=== PATIENT | female | born 1955 | race Caucasian/White ===

== ENCOUNTER 2019-06-07 09:08 | Outpatient (CLI) | payer OTHER, SELFPAY ==
[2019-06-07 09:59] LABS: Basophils Percent Auto 0.7 % (0.2-1.2); Eosinophils Absolute Auto 0.1 K/mm3 (0-0.3); Eosinophils Percent Auto 2.1 % (0-4.4); Hematocrit 44.5 % (37.0-47.0); Hemoglobin 14.2 g/dL (12.0-15.0); Immature Granulocyte Absolute 0.01 K/mm3 (0.00-0.031); Immature Granulocyte Percent A 0.2 % (0-0.5); Lymphocytes Percent Auto 44.2 % (18.3-44.2); Mean Corpuscular HGB Conc 31.9 g/dl (32-36); Mean Corpuscular Hemoglobin 29.6 pg (26-34); Mean Corpuscular Volume 92.9 fl (80-100); Mean Platelet Volume 10.8 fl (7.4-10.4); Monocytes Absolute Auto 0.5 K/mm3 (0.1-0.6); Monocytes Percent Auto 8.5 % (2.6-8.5); Neutrophils Absolute Auto 2.5 K/mm3 (1.3-6.7); Neutrophils Percent Auto 44.3 % (45.5-73.1); Platelet Count Result 210 k/mm3 (150-375); Red Blood Count 4.79 M/mm3 (4.2-5.4); Red Cell Distribution Width 12.5 % (11.5-14.5); White Blood Count 5.7 K/mm3 (4.5-10.0)
[2019-06-07 10:00] LABS: Add Urine Microscopic? YES; Appearance Urine Clear (Clear); Bilirubin Urine Negative (Negative); Blood Urine Negative (Negative); Color Urine Yellow (Yellow); Glucose Urine UA Negative (Negative); Ketones Urine Trace mg/dL (Negative); Leukocyte Esterase Ur Trace LEU/UL (NEGATIVE); Mucus Urine Few /lpf; Nitrate Urine Negative (Negative); Protein Urine Negative (Negative); Specific Grav Ur 1.025 (1.001-1.035); Squamous Epithelial Cell Urine Rare /hpf (Few); Urobilinogen Urine Negative mg/dL (<2.0); WBC Urine 0-3 /hpf (0-3)
[2019-06-07 10:10] LABS: Alanine Aminotransferase 20 U/L (4-35); Albumin Level 4.3 g/dL (3.5-5.1); Alkaline Phosphatase 75 U/L (38-126); Aspartate Amino Transferase 28 U/L (14-36); Bilirubin,Total 0.5 mg/dL (0.2-1.3); Blood Urea Nitrogen 22 mg/dL (7-17); CRP < 0.5 mg/dL (<1.0); Calcium 9.5 mg/dL (8.4-10.2); Carbon Dioxide 28 mmol/L (22-30); Chloride 103 mmol/L (98-107); Cholesterol 245 mg/dL (0-200); Estimated Glomerular Filt Rate > 60; Glucose 98 mg/dL (65-105); HDL Direct 47 mg/dL; Potassium 4.1 mmol/L (3.4-5.0); Sodium 139 mmol/L (137-145); Triglycerides 106 mg/dL (<150)
[2019-06-07 10:19] LABS: LDL Cholesterol Direct 152 mg/dL
[2019-06-07 10:23] LABS: Erythrocyte Sedimentation Rate 15 mm/hr (0-20)
[2019-06-07 10:34] LABS: Hemoglobin A1C 5.5 % (<5.7)
[2019-06-07 10:41] LABS: Free T4 Free Thyroxine 1.02 ng/mL (0.78-2.19)
[2019-06-07 11:14] LABS: Folic Acid 11.6 ng/mL (2.76->20)
[2019-06-08 22:56] LABS: Methylmalonic Acid 217 nmol/L (87-318)
[2019-06-09 03:42] LABS: Insulin Level Total 3.5 uIU/mL (<=19.6); Thyroid Peroxidase Antibodies <1 IU/mL (<9)
[2019-06-09 19:58] LABS: Intrinsic Factor Blocking Ab Negative (Negative)
[2019-06-10 06:38] LABS: C-Peptide 0.64 ng/mL (0.80-3.85); Triiodothyronine T3 Free 2.8 pg/mL (2.3-4.2)
[2019-06-10 08:51] LABS: Vitamin B1 10 nmol/L (8-30)
[2019-06-10 12:53] LABS: Vitamin B6 17.4 ng/mL (2.1-21.7)
[2019-06-16 08:22] LABS: Vitamin B2 15.3 nmol/L (6.2-39.0)
== END 2019-06-07 09:09 | disposition home or self-care (01) ==
PROVIDERS: PCP Internal Medicine; Visit Provider Internal Medicine
DX: R69 Illness, unspecified (principal); Z87.19 Personal history of other diseases of the digestive system
CPT/HCPCS: 36415; 80053; 80061; 81001; 82607; 82746; 83036; 83525; 83921; 84207; 84252; 84425; 84439; 84443; 84481; 84681; 85025; 85652; 86140; 86340; 86376

== ENCOUNTER 2019-06-14 09:46 | Outpatient (CLI) | payer OTHER, SELFPAY ==
--- NOTE | ~2019-06-14 | US_ITS ---
EXAMINATION: US renal BI EXAM DATE: 06/14/2019 10:03 INDICATION: Hematuria. TECHNIQUE: Multiple grayscale and Doppler images of the kidneys were obtained (by a technologist who performed the scan) and subsequently reviewed. There is no prior study for comparison. FINDINGS: Right kidney: There is normal contour and echogenicity. It measures 11.0 x 4.1 x 4.1 centimeters. T here are no focal renal lesions identified. There is no hydronephrosis. Left kidney: There is normal contour and echogenicity. It measures 9.0 x 4.1 x 5.1 centimeters. The re are no focal renal lesions identified. There is no hydronephrosis. Bladder unremarkable. IMPRESSION: 1. Sonographically unremarkable kidneys. Reviewed, dictated and finalized at location B.
[2019-06-14 11:33] LABS: Vitamin D 25 Hydroxy 49.6 ng/mL
== END 2019-06-14 09:47 | disposition home or self-care (01) ==
PROVIDERS: PCP Internal Medicine; Visit Provider Internal Medicine
DX: Z86.39 Personal history of other endocrine, nutritional and metabolic disease (principal); R31.9 Hematuria, unspecified
CPT/HCPCS: 36415; 76775; 82306

== ENCOUNTER 2019-06-25 14:30 | Outpatient (CLI) | payer OTHER, SELFPAY ==
[2019-06-25 15:08] LABS: Magnesium 2.2 mg/dL (1.6-2.3)
[2019-06-30 16:32] LABS: Gliadin AB, IgG 3 Units (<20); Reticulin IgA Negative (Negative); TTG IGA AB 1 U/mL (<4)
== END 2019-06-25 14:31 | disposition home or self-care (01) ==
PROVIDERS: PCP Internal Medicine; Visit Provider Internal Medicine
DX: R69 Illness, unspecified (principal); K58.9 Irritable bowel syndrome, unspecified; D51.9 Vitamin B12 deficiency anemia, unspecified
CPT/HCPCS: 36415; 83516; 83735; 86255

== ENCOUNTER 2019-07-03 14:49 | Outpatient (CLI) | payer OTHER, SELFPAY ==
[2019-07-05 23:13] LABS: Zinc 93 mcg/dL (60-130)
== END 2019-07-03 14:50 | disposition home or self-care (01) ==
PROVIDERS: PCP Internal Medicine; Visit Provider Internal Medicine
DX: D51.9 Vitamin B12 deficiency anemia, unspecified (principal); K58.9 Irritable bowel syndrome, unspecified
CPT/HCPCS: 36415; 84630

== ENCOUNTER 2019-11-06 10:16 | Outpatient (CLI) | payer OTHER, SELFPAY ==
[2019-11-06 11:17] LABS: Alanine Aminotransferase 20 U/L (4-35); Albumin Level 4.5 g/dL (3.5-5.1); Alkaline Phosphatase 68 U/L (38-126); Anion Gap 8 mmol/L (8-16); Aspartate Amino Transferase 29 U/L (14-36); Bilirubin,Total 0.5 mg/dL (0.2-1.3); Blood Urea Nitrogen 22 mg/dL (7-17); Calcium 9.7 mg/dL (8.4-10.2); Carbon Dioxide 28 mmol/L (22-30); Chloride 105 mmol/L (98-107); Cholesterol 242 mg/dL (0-200); Estimated Glomerular Filt Rate > 60; Glucose 106 mg/dL (65-105); HDL Direct 48 mg/dL; Potassium 4.5 mmol/L (3.4-5.0); Sodium 141 mmol/L (137-145); Triglycerides 116 mg/dL (<150)
[2019-11-06 11:21] LABS: Hemoglobin A1C 5.3 % (<5.7)
[2019-11-06 11:28] LABS: LDL Cholesterol Direct 136 mg/dL
[2019-11-09 10:55] LABS: Vitamin B1 13 nmol/L (8-30)
== END 2019-11-06 10:17 | disposition home or self-care (01) ==
PROVIDERS: PCP Internal Medicine; Visit Provider Internal Medicine
DX: E51.9 Thiamine deficiency, unspecified (principal); E78.5 Hyperlipidemia, unspecified; Z13.1 Encounter for screening for diabetes mellitus; Z79.899 Other long term (current) drug therapy; Z13.29 Encounter for screening for other suspected endocrine disorder
CPT/HCPCS: 36415; 80053; 80061; 83036; 84425; 84443

== ENCOUNTER 2020-04-17 14:18 | Outpatient (CLI) | payer OTHER, SELFPAY ==
--- NOTE | ~2020-04-17 | XR_ITS ---
EXAMINATION: XR sinus <3V DATE: 04/17/2020 14:51 INDICATION: Chronic sinus congestion. TECHNIQUE: 5 views of the paranasal sinuses were obtained. COMPARISON: None. FINDINGS: Bone alignment is normal. No fracture. The paranasal sinuses are clear. IMPRESSION: 1. Normal paranasal sinuses. Reviewed, dictated and finalized at location A. DRESSER
== END 2020-04-17 14:19 | disposition home or self-care (01) ==
LOC: ANHIMG 14:19
PROVIDERS: PCP Internal Medicine; Visit Provider Internal Medicine
DX: R09.81 Nasal congestion (principal)
CPT/HCPCS: 70210

== ENCOUNTER 2020-05-19 15:37 | Outpatient (CLI) | payer OTHER, SELFPAY ==
--- NOTE | ~2020-05-19 | CT_ITS ---
EXAMINATION: CT brain wo/w con DATE: 05/19/2020 16:06 INDICATION: Headaches. Vertigo, stiff neck and occipital tenderness. TECHNIQUE: Computed tomography (CT) of the head was performed without and with 100 mL Omnipaque-350 i ntravenous contrast. Sagittal and coronal reconstructions were performed. The mA was adjusted accordi ng to patient size. Iterative reconstruction technique was employed. The dose-length product was 1210 .67 mGy-cm. COMPARISON: None FINDINGS: No acute intracranial hemorrhage, acute infarction or abnormal extra axial fluid collection. Ventricl es are normal and symmetric. No mass/mass effect. No abnormally enhancing brain lesions. The orbits a nd mastoid air cells are normal. Moderate mucosal thickening and small amount of posterior layering f luid/mucus in the right sphenoid sinus. Remainder of the paranasal sinuses are clear. IMPRESSION: 1. No acute intracranial process or abnormally enhancing brain lesions. 2. Mucosal thickening and layering fluid/mucus in the right sphenoid sinus consistent with acute sinu sitis. Reviewed, dictated and finalized at location B. IMPRESSION: 1. No acute intracranial process or abnormally enhancing brain lesions. 2. Mucosal thickening and layering fluid/mucus in the right sphenoid sinus cons istent with acute sinusitis.
[2020-05-19 16:01] LABS: Estimated Glomerular Filt Rate > 60
== END 2020-05-19 15:38 | disposition home or self-care (01) ==
PROVIDERS: PCP Internal Medicine; Visit Provider Internal Medicine
DX: R51.9 Headache, unspecified (principal)
CPT/HCPCS: 70470; Q9967

== ENCOUNTER 2022-04-20 12:38 | Outpatient (CLI) | payer OTHER, SELFPAY ==
--- NOTE | ~2022-04-20 | CT_ITS ---
EXAMINATION: CT chest high resolution wo sc DATE: 04/20/2022 12:56 INDICATION: Chronic cough TECHNIQUE: Computed tomography (CT) of the chest was performed without intravenous contrast. The dose -length product (DLP) was 131.97 mGy-cm. Automated exposure control and iterative reconstruction tech nique were employed. COMPARISON: None FINDINGS: Tiny mucous plugs are seen in multiple bilateral bronchi. The lungs are free of acute airsp nael opacities. There are small bilateral pulmonary nodules measuring up to 3 mm. No pleural effusion or pneumothorax. No pathologically enlarged thoracic lymph nodes are identified. The heart size is no rmal. There is mild thoracic spondylosis. IMPRESSION: 1. Tiny mucous plug seen in multiple bilateral bronchi, consistent with infection. 2. Multiple small pulmonary nodules measuring up to 3 mm. If the patient has no risk factors for ady gnancy, no further follow up is required. If there are risk factors for malignancy (i.e., history of smoking, asbestos or radiation exposure), consider followup CT in 12 months. Reviewed, dictated and finalized at location L. REPAIRER IMPRESSION: 1. Tiny mucous plug seen in multiple bilateral bronchi, consistent with infecti on. 2. Multiple small pulmonary nodules measuring up to 3 mm. If the patient has no risk factors for malignancy, no further follow up is required. If there are r isk factors for malignancy (i.e., history of smoking, asbestos or radiation exp osure), consider followup CT in 12 months.
--- NOTE | ~2022-04-20 | CT_ITS ---
EXAMINATION: CT sinus wo con DATE: 04/20/2022 12:56 INDICATION: Cough and congestion. TECHNIQUE: Computed tomography (CT) of the paranasal sinuses was performed without intravenous contra st. Iterative reconstruction technique was employed. The dose-length product was 318.31 mGy-cm. COMPARISON: Head CT 05/19/2020 FINDINGS: The frontal and ethmoid sinuses are clear. There is moderate mucosal thickening in right sp henoid sinus. The maxillary sinuses are clear. There is esme bullosa involving left middle turbinat e. There are bilateral Ursula cells. The ostiomeatal units are patent. The nasal septum demonstrates rightward deviation superiorly on a left lateral spur. IMPRESSION: 1. Mucosal thickening in right sphenoid sinus. Reviewed, dictated and finalized at location A. P FITNESS ASSISTANT DEPARTMENT HEAD
== END 2022-04-20 12:39 | disposition home or self-care (01) ==
LOC: ANHIMG 12:39
PROVIDERS: PCP Internal Medicine; Visit Provider Internal Medicine
DX: R05.3 Chronic cough (principal); R09.81 Nasal congestion; R91.8 Other nonspecific abnormal finding of lung field
CPT/HCPCS: 70486; 71250

== ENCOUNTER 2022-04-22 07:30 | Outpatient (CLI) | payer OTHER, SELFPAY ==
--- NOTE | ~2022-04-22 | XR_ITS ---
EXAMINATION: XR UGIAC wo kub DATE: 04/22/2022 08:44 INDICATION: Cough with eating and drinking. TECHNIQUE: The patient drank thick barium, gas-producing crystals, and thin barium. Fluoroscopy of th e esophagus, stomach, and proximal small bowel was performed. Fluoroscopy exposure time was 0.5 minut es. The total number of images was 215. Total dose-area product was 1.049 Gy-cm^2. COMPARISON: Chest CT 04/20/2022 FINDINGS: There is no mass or stricture of the esophagus. Esophageal motility is normal. There is no hiatal hernia. There was no gastroesophageal reflux with provocative maneuvers. The stomach and proxi mal small bowel show normal folding patterns. IMPRESSION: 1. Normal upper gastrointestinal series. Reviewed, dictated and finalized at location A. COORDINATOR
--- NOTE | ~2022-04-22 | XR_ITS ---
EXAMINATION: XR barium swallow modified DATE: 04/22/2022 08:46 INDICATION: Coughing with eating and drinking. TECHNIQUE: The patient was given barium-containing material of multiple consistencies to swallow by t britta speech pathologist while I performed fluoroscopy. Fluoroscopy exposure time was 0.8 minutes. The n umber of fluoroscopy images saved to the PACS was 1. Dose-area product was 0.551 Gy-cm^2. FINDINGS: There is mild vallecular residue and trace piriform sinus residue. No laryngeal penetration or aspira tion. IMPRESSION: 1. No laryngeal penetration or aspiration. 2. Please refer to the speech therapy report for recommendations. Reviewed, dictated and finalized at location A. HING PATTERNMAKER
[2022-04-22 08:02] LABS: Basophils Percent Auto 0.7 % (0.2-1.2); Eosinophils Absolute Auto 0.1 K/mm3 (0-0.3); Eosinophils Percent Auto 1.4 % (0-4.4); Hematocrit 44.1 % (37.0-47.0); Hemoglobin 14.4 g/dL (12.0-15.0); Immature Granulocyte Absolute 0.02 K/mm3 (0.00-0.031); Immature Granulocyte Percent A 0.4 % (0-0.5); Lymphocytes Percent Auto 45.2 % (18.3-44.2); Mean Corpuscular HGB Conc 32.7 g/dl (32-36); Mean Corpuscular Hemoglobin 29.5 pg (26-34); Mean Corpuscular Volume 90.4 fl (80-100); Mean Platelet Volume 10.1 fl (7.4-10.4); Monocytes Absolute Auto 0.4 K/mm3 (0.1-0.6); Neutrophils Absolute Auto 2.5 K/mm3 (1.3-6.7); Neutrophils Percent Auto 44.3 % (45.5-73.1); Platelet Count Result 243 k/mm3 (150-375); Red Blood Count 4.88 M/mm3 (4.2-5.4); Red Cell Distribution Width 13.1 % (11.5-14.5); White Blood Count 5.5 K/mm3 (4.5-10.0)
[2022-04-22 09:02] LABS: Alanine Aminotransferase 23 U/L (6-35); Albumin Level 4.5 g/dL (3.5-5.1); Alkaline Phosphatase 81 U/L (38-126); Anion Gap 8 mmol/L (8-16); Aspartate Amino Transferase 29 U/L (14-36); Bilirubin,Total 0.7 mg/dL (0.2-1.3); Blood Urea Nitrogen 16 mg/dL (7-17); Calcium 9.4 mg/dL (8.4-10.2); Carbon Dioxide 29 mmol/L (22-30); Chloride 103 mmol/L (98-107); Cholesterol 251 mg/dL (0-200); Estimated Glomerular Filt Rate > 60; Glucose 100 mg/dL (65-110); HDL Direct 38 mg/dL; Potassium 4.3 mmol/L (3.4-5.0); Sodium 140 mmol/L (137-145); Triglycerides 128 mg/dL (<150)
[2022-04-22 09:14] LABS: LDL Cholesterol Direct 141 mg/dL
--- NOTE | 2022-04-22 09:17 | REHSTMBS ---
Assessment and note entered by Laure Crystal, RESERVATIONS SPECIALIST Modified Barium Swallow Evaluation Feeding Type Recommended Oral Food Consistency Regular, Level 7 Liquid Consistency Thin (0) ST Clinical Summary MODIFIED BARIUM SWALLOW The patient was seen for a Modified Barium Swallow study to assess her risk for aspiration. Patient reported that approximately four weeks ago, she suffered from influenza which developed into pneumonia. Patient reported that she was started on nebulizer/steroid treatments and she stated that since that time she has noticed that she coughs after she eats, and that even when swallowing water, she would feel it come back up and she would cough. She did report a history of gastroesophageal reflux. Patient reported that a CT scan showed mucous plugs in her lungs and she is unsure if these were caused by the pneumonia or by aspiration. Today the patient was viewed in the lateral position of C5/C6. Patient was presented with thin liquid per spoon and cup, then pudding mixed with semi-solid contrast medium, and crackers and fruit coated with the semi-solid mixture. Patient exhibited quick swallows with no evidence of penetration or aspiration. Patient may remain on regular diet and liquids. No further Speech Therapy is indicated and patient is referred back to her physician for further assessment of her complaints.
[2022-04-22 09:24] LABS: Hemoglobin A1C 5.4 % (<5.7)
[2022-04-22 09:46] LABS: Free T4 Free Thyroxine 1.27 ng/mL (0.78-2.19); Vitamin D 25 Hydroxy 33.3 ng/mL
[2022-04-22 10:06] LABS: Folic Acid 8.3 ng/mL (2.76->20)
[2022-04-29 13:20] LABS: Vitamin B1 8 nmol/L (8-30)
== END 2022-04-22 07:31 | disposition home or self-care (01) ==
PROVIDERS: PCP Internal Medicine; Visit Provider Internal Medicine
DX: R05.3 Chronic cough (principal); R13.10 Dysphagia, unspecified; Z79.899 Other long term (current) drug therapy; Z13.29 Encounter for screening for other suspected endocrine disorder; E78.5 Hyperlipidemia, unspecified; E51.9 Thiamine deficiency, unspecified; D51.9 Vitamin B12 deficiency anemia, unspecified; E55.9 Vitamin D deficiency, unspecified; Z13.1 Encounter for screening for diabetes mellitus
CPT/HCPCS: 36415; 74246; 80053; 80061; 82306; 82607; 82746; 83036; 84425; 84439; 84443; 85025; 92611

== ENCOUNTER 2022-05-26 12:50 | Outpatient (CLI) | payer OTHER, SELFPAY ==
--- NOTE | ~2022-05-26 | MR_ITS ---
MRI of the cervical spine Clinical History: Dizziness, neck pain Technique: Axial T2-weighted and gradient images, and sagittal T1-weighted, T2-weighted, and STIR yves ges were acquired. Findings: There is no fracture or subluxation of the cervical spine. Vertebral bodies maintain normal height and alignment. No suspicious bone marrow signal abnormality seen. At C2-C3, there is no disc bulge or herniation. No spinal canal stenosis, cord compression, or neural foraminal narrowing. At C3-C4, there is minimal disc osteophyte complex. There is no kourtney spinal canal stenosis, cord com pression, or neural foraminal narrowing. At C4-C5, there is mild disc osteophyte complex which probably minimally flattens the ventral cord. B ilateral neural foramina are probably preserved. At C5-C6, there is minimal disc osteophyte complex. No kourtney spinal canal stenosis, cord compression, or neural foraminal narrowing. At C6-C7, there is minimal disc osteophyte complex. No kourtney spinal canal stenosis, cord compression, or neural foraminal narrowing. No abnormal signal seen in the spinal cord. Paravertebral soft tissues are unremarkable. Impression: Minimal degenerative spondylosis, as noted above. Reviewed, dictated and finalized at location . Impression: Minimal degenerative spondylosis, as noted above.
--- NOTE | ~2022-05-26 | MR_ITS ---
MRI of the brain Clinical History: Dizziness Technique: Axial and sagittal T1-weighted images were acquired. These were followed by axial T2-weigh carolann, diffusion weighted, gradient, and FLAIR images. Following intravenous administration of 10 cc Mu ltiHance gadolinium, T1-weighted fat-sat imaging was performed in the axial and coronal planes. Findings: No significant signal abnormality seen in the brain parenchyma. No acute infarct, intracran ial hemorrhage or mass lesion seen. Ventricles and subarachnoid spaces are unremarkable. Orbits are unremarkable. Paranasal sinuses and m astoid air cells are clear. Major intracranial flow voids are intact. Sagittal midline structures are intact. No abnormal postcontrast enhancement identified. IMPRESSION: No significant abnormality seen. Reviewed, dictated and finalized at location .
== END 2022-05-26 12:51 | disposition home or self-care (01) ==
LOC: ANHIMG 12:51
PROVIDERS: PCP Internal Medicine; Visit Provider Internal Medicine
DX: R42 Dizziness and giddiness (principal); R51.9 Headache, unspecified; G89.29 Other chronic pain; M47.892 Other spondylosis, cervical region
CPT/HCPCS: 70553; 72141; A9577

== ENCOUNTER 2023-10-27 12:40 | Outpatient (CLI) | payer OTHER, SELFPAY ==
[2023-10-27 19:21] LABS: Basophils Percent Auto 0.5 % (0.2-1.2); Eosinophils Absolute Auto 0.1 K/mm3 (0-0.3); Eosinophils Percent Auto 1.2 % (0-4.4); Hematocrit 44.6 % (37.0-47.0); Hemoglobin 14.3 g/dL (12.0-15.0); Immature Granulocyte Absolute 0.01 K/mm3 (0.00-0.031); Immature Granulocyte Percent A 0.2 % (0-0.5); Lymphocytes Absolute Auto 2.91 K/mm3 (0.9-3.2); Lymphocytes Percent Auto 49.2 % (18.3-44.2); Mean Corpuscular HGB Conc 32.1 g/dl (32-36); Mean Corpuscular Hemoglobin 30.6 pg (26-34); Mean Corpuscular Volume 95.5 fl (80-100); Mean Platelet Volume 10.9 fl (7.4-10.4); Monocytes Absolute Auto 0.5 K/mm3 (0.1-0.6); Monocytes Percent Auto 7.6 % (2.6-8.5); Neutrophils Absolute Auto 2.4 K/mm3 (1.3-6.7); Neutrophils Percent Auto 41.3 % (45.5-73.1); Platelet Count Result 237 k/mm3 (150-375); Red Blood Count 4.67 M/mm3 (4.2-5.4); Red Cell Distribution Width 13.1 % (11.5-14.5); White Blood Count 5.9 K/mm3 (4.5-10.0)
[2023-10-27 19:33] LABS: Add Urine Microscopic? NO; Appearance Urine Clear (Clear); Bilirubin Urine Negative (Negative); Blood Urine Negative (Negative); Color Urine Yellow (Yellow); Glucose Urine UA Negative (Negative); Ketones Urine Negative (Negative); Leukocyte Esterase Ur Negative LEU/UL (Negative); Nitrate Urine Negative (Negative); Protein Urine Negative (Negative); Specific Grav Ur 1.009 (1.001-1.035); Urobilinogen Urine 0.2 mg/dL (<2.0)
[2023-10-27 19:43] LABS: Alanine Aminotransferase 20 U/L (6-35); Albumin Level 4.4 g/dL (3.5-5.1); Alkaline Phosphatase 74 U/L (38-126); Anion Gap 10 mmol/L (4-12); Aspartate Amino Transferase 51 U/L (14-36); Bilirubin,Total 0.6 mg/dL (0.2-1.3); Blood Urea Nitrogen 19 mg/dL (7-17); Calcium 9.5 mg/dL (8.4-10.2); Carbon Dioxide 28 mmol/L (22-30); Chloride 101 mmol/L (98-107); Cholesterol 271 mg/dL (0-200); Estimated Glomerular Filt Rate > 60; Glucose 85 mg/dL (65-110); HDL Direct 40 mg/dL; Sodium 139 mmol/L (137-145); Triglycerides 184 mg/dL (<150)
[2023-10-27 19:54] LABS: LDL Cholesterol Direct 165 mg/dL
[2023-10-27 20:42] LABS: Hemoglobin A1C 5.5 % (<5.7)
[2023-10-27 21:22] LABS: Folic Acid 8.8 ng/mL (2.76->20)
== END 2023-10-27 12:41 | disposition home or self-care (01) ==
LOC: ANHBWCLAB 12:41
PROVIDERS: PCP Internal Medicine; Visit Provider Internal Medicine
DX: Z00.00 Encounter for general adult medical examination without abnormal findings (principal); Z79.899 Other long term (current) drug therapy; E78.2 Mixed hyperlipidemia; D51.9 Vitamin B12 deficiency anemia, unspecified
CPT/HCPCS: 36415; 80053; 80061; 81003; 82306; 82607; 82746; 83036; 84439; 84443; 85025

== ENCOUNTER 2024-04-27 10:31 | Outpatient (CLI) | payer OTHER, SELFPAY ==
--- NOTE | ~2024-04-27 | DEXA_ITS ---
Bone Density Report Name: JOHNIE SANABRIA Age: 68 Sex: Female Ethnicity: White Date of : 1955 Indication: postmenopausal; screening for osteoporosis; Referring Provider: VAMSHI IRIZARRY Study: Bone densitometry was performed. Exam Date: April 27, 2024 Accession number: [id number] Bone Density: Region BMD T-score Z-score Classification AP Spine(L1-L4) 0.683 -3.3 -1.4 Osteoporosis Femoral Neck (Left) 0.537 -2.8 -1.2 Osteoporosis Total Hip (Left) 0.749 -1.6 -0.3 Osteopenia Femoral Neck (Right) 0.520 -3.0 -1.4 Osteoporosis Total Hip (Right) 0.765 -1.5 -0.1 Osteopenia Total Hip Mean 0.757 -1.6 -0.2 Osteopenia World Health Organization criteria for BMD impression classify patients as: Normal (T-score at or above -1.0), Osteopenia (T-score between -1.0 and -2.5), or Osteoporosis (T-score at or below -2.5). 10-year Fracture Risk: FRAX not reported because: Some T-score for Spine Total or Hip Total or Femoral Neck at or below -2.5 Clinical Information Provided by Patient: Has used the following medications: Vitamin D Patient maximum height was 63 Menopause Age: 56 No regular weight bearing exercise Does not regularly consume dairy products Drinks caffeinated beverages Onset of menses at age 14 Number of children 3 Impression: The patient has osteoporosis, based on the Total Spine T-score. Discussion: INCREASED RISK OF FRACTURE. BONE DENSITY IS UNDESIRABLY LOW AT ONE OR MORE SKELETAL SITES, CONSISTENT WITH POSTMENOPAUSAL OSTEOPOROSIS. This patient's lowest T-score meets the World Health Organization's (WHO) criteria for osteoporosis at one or more sites (T-score -2.5 or below). In untreated patients, the risk of osteoporotic fracture increases approximately two-fold for each 1.0 SD decrease in T-score. Low bone density is not the only risk factor for fracture; also consider factors such as patient's age, frailty or poor health, risk of falling, risk of injury, previous osteoporotic fracture, family history of osteoporosis, cigarette smoking, low body weight, etc. Not everyone with low bone mineral density has osteoporosis; osteomalacia and other metabolic bone disorders should also be considered. Patients who have osteoporosis should be evaluated for specific diseases and conditions (secondary causes) that may cause or contribute to bone loss. The [place] [employer] of Clinical Endocrinologists (AACE) and National Osteoporosis Foundation (NOF) recommend pharmacologic intervention for all postmenopausal women whose T-score is in this range. The patient should follow a healthful lifestyle (good nutrition with adequate calcium and vitamin D, and appropriate weight-bearing exercise). Follow-Up: Consider a repeat BMD and Vertebral Fracture Assessment (VFA) exam in 2 years or sooner if medically necessary, to reassess this patient's status. Reported by: NAYELI on 04/27/2024 11:03:00 AM. Reviewed, dictated and finalized at location A. [facility]
--- OUTSIDE RECORDS SUMMARY | 2024-04-27 11:09 | XMS_ITS | Clinical Summary ---
Author Organization [facility] Medical Office Building [address] Address [address] [place] [address] Care Team Providers Care Rotary Cutter Feeder Name Role Phone Franky Ramirez MD Primary Care Provider [phone] Allergies Active Allergy Reactions Criticality Noted Date Comments Hydroxyzine Palpitations Low Iodine Palpitations,Flushing (skin) Low Meperidine Palpitations Low Medications pravastatin (PRAVACHOL) 80 mg tablet Take 1 tablet (80 mg total) by mouth daily Active thiamine (VITAMIN B1) 100 mg tablet Take 1 tablet (100 mg total) by mouth daily Active Active Problems Problem Noted Date Diagnosed Date Hx of colonic polyps 11/03/2023 Bloating 04/28/2022 Overview (04/28/2022): Added automatically from request for surgery [id number] Delayed gastric transit 04/28/2022 Overview (04/28/2022): Added automatically from request for surgery [id number] Irritable bowel syndrome with constipation 11/12 Dyspepsia 11/12/2021 Vertigo 05/23/2020 Assessment & Plan (05/27/2020 3:55 PM CDT): Billie has been experiencing vertigo symptoms since March 17, denies any relief in her symptoms since then. She has been going to vestibular therapy and undergoing chiropractic work for her vertigo-like symptoms without relief. She does report that her dizziness gets worse when she does laid down but denies any worsening symptoms with quick head movements, no nystagmus noted on exam. Is likely that Billie's vertigo could be related to vestibular migraines/current headache cycle. She has associated daily headache that is a constant throbbing nature. She has not responded to vestibular therapy or chiropractic work, therefore I believe it is reasonable to move forward with imaging is any has not been much of a migraine suffer in the past. I also would like to move forward with a migraine treatment regimen to see if we can obtain relief of her symptoms. Occipital neuralgia of right side 05/23/2020 Assessment & Plan (06/05/2020 12:03 PM CDT): On exam today I did not elicit a Tinel sign over the right greater occipital nerve. After discussing with the patient and evaluating her further, we decided to proceed with trigger point injections of the semi spinalis and splenius capitis. The areas of tenderness were identified by palpation. After preparing the skin with isopropyl alcohol, a 27 gauge 1/2 inch needle was inserted in the muscle belly of the semi spinalis on the right and the splenius capitis on the right. After negative aspiration, 1 mL of 0.5% bupivacaine was injected into each muscle. Estimated blood loss 0, complications 0 Assessment & Plan (05/27/2020 3:52 PM CDT): Billie is exhibiting symptoms of occipital neuralgia. She is able to reproduce pain when placing pressure over the right side occipital nerve. She has not had success with vestibular therapy or chiropractic work. She has not tried any prescription medications to treat her symptoms. Plan: 1. Nortriptyline 10 mg nightly 2. MRI MRA of the brain to evaluate for any vascular structural causes 3. Discussed potential occipital nerve block in the near future in the event the neuropathic medications do not work. Headache disorder 05/23/2020 Assessment & Plan (06/05/2020 12:03 PM CDT): The patient appears to have cervicogenic headaches. Certainly some of this appears to be associated with muscle tension. We did trigger point injections today. If these fail to improve her symptoms, I have increased the patient's nortriptyline as well as given her tizanidine to try. She can follow up with [facility] as previously scheduled. Assessment & Plan (05/27/2020 3:51 PM CDT): Billie is currently experiencing daily headache to some caliber. She has associated symptoms of dizziness, phonophobia, photophobia and nausea. She reports that her headache is in the occipital area unilaterally on the right side and will often have a frontal pressure as well. She has tried ckgw-esi-pbznuyc medication with little relief. She is currently on a steroid pack given her by her primary care provider with little relief of her headache pattern. She has not been on a daily preventative nor has she tried a Triptan. She is open to trying a daily preventative treatment at this time. We will consider introducing a Triptan in the future. She has mixed headache features in nature. She has features consistent with that of vestibular migraines, classic migraines and symptoms consistent with that of occipital neuralgia. We discussed possibly moving forward with an occipital nerve block. She is open to this treatment plan if neuropathic medications do not offer her significant relief in the near future. Plan: 1. Nortriptyline 10 mg nightly for headache prevention. We will titrate this medication up as tolerated. 2. MRI and MRA of the brain to identify any potential vascular or structural causes of her headaches and associated dizziness. MRA to evaluate the posterior circulation. 3. Headache diary 4. Cessation of rutb-rec-obyvnlt medication use 5. Caffeine cessation 6. 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 7. Follow-up in 4-6 weeks At today s visit migraine education was performed. We discussed avoidance of migraine triggers and non-medicinal strategies for preventing migraines. Topics of discussion included improved sleep hygiene, healthy diet, and stress reduction techniques. We also discussed the importance of avoiding medication overuse, as this can promote analgesic rebound headache. Hyperlipidemia 04/18/2018 White coat syndrome without diagnosis of hyperte nsion 03/25/2017 Vitamin D deficiency 03/22/2017 Vitamin B 12 deficiency 03/17/2017 Migraine 09/18/2013 Overview (06/10/2016): MIGRNE UNSP WO NTRC MGRN Irritable bowel syndrome 07/21/2013 Overview (06/10/2016): IRRITABLE BOWEL SYNDROME Resolved Problems Problem Noted Date Diagnosed Date Resolved Date Sinusitis 05/06/2015 03/17/2017 Overview (06/10/2016): Sinusitis, unspecified chronicity, unspecified location No pathologic diagnosis 01/05/201203/07 Overview (06/11/2016): No diagnosis Encounters Date Type Department Care Team Description 03/21/2024 Telephone [facility] Gastroenterology at [address] [place] [address] Lore Zuniga MA from Last 3 Months Immunizations Immunization Administration Dates Next Due Influenza, Split 01/16/2010,12/23/2008 Influenza, Unspecified 12/05/2017,12/05/2016,03/2015 Tdap 11/03/2010 Surgical History Surgery Date Site/Laterality Comments SECTION 1984, 1986, & 1994 TUBAL LIGATION 03/07/1994 - 03/06/1995 UPPER GASTROINTESTINAL ENDOSCOPY COLONOSCOPY 07/05/2017 - 08/04/2017 POLYPECTOMY Medical History Medical History Date Comments Hyperlipidemia Leg fracture, right 1982 Back pain Osteopenia History of migraine headaches IBS (irritable bowel syndrome) Small bowel 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 Colon polyp Pneumonia 03/2022 Postviral gastroparesis Family History Medical History Relation Name Comments Kidney cancer Father COD at age 80 Hyperlipidemia Mother Hypertension Mother Transient ischemic attack Mother th ree times in her 40's Relation Name Status Comments Father Mother Social History Tobacco Use Types Packs/Day Years Used Date Smoking Tobacco: Never Smokeless Tobacco: Never Tobacco Cessation:Counseling Given: Not Answered Alcohol Use Standard Drinks/Week Comments No 0 (1 standard drink = 0.6 oz pur e alcohol) AUDIT-C Answer Date Recorded Q1: How often do you have a drink containing alc ohol? Monthly or less 10/26/2023 Q2: How many drinks containi ng alcohol do you have on a typical day when you are drinking? 1 or 2 10/26/2023 Q3: How often do you have si x or more drinks on one occasion? 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 Not on file Obstetrics History Para Term AB IAB SAB Ectopic Multiple Livin g Live Births 3 3 3 0 0 0 0 0 0 3 3 Date Outcome GA Total Labor Labor/2nd/3rd Weight Sex Type Anes PTL Kira A1 A5 Name Clin Term Term Term Last Filed Vital Signs Vital Sign Reading Time Taken Comments Blood Pressure 165/82 10/26/2023 10:21 AM CDT Pulse 122 10/26/2023 10:21 AM CDT Temperature 36.8 C (98.2 F) 05/06/2022 3:[address] [employer] Respiratory Rate 16 10/26/2023 10:2 1 AM CDT Oxygen Saturation 99% 05/06/2022 3:[address] [employer] Inhaled Oxygen Concentration - - Weight 53.4 kg (117 lb 12.8 oz) 024 10:21 AM CDT Height 160 cm (5' 3 ) 10/26/2023 10:21 AM CDT Body Mass Index 20.87 10/26/2023 10:21 AM CDT Plan of Treatment Upcoming Encounters Date Type Department Care Team (Late st Contact Info) Description 05/29/2024 11:30 AM CDT Hospital Encounter [address] [address] Maddy Claire MD [address] [facility] [address] [place] [address] [place] [id number] 05/29/2024 11:30 AM CDT - 05/29/2024 12:00 PM CDT Surgery [address] [address] Maddy Claire MD [address] [facility] [address] [place] [address] COLONOSCOPY Scheduled Procedures Name Priority Associated Diagnoses Date/Ti me COLONOSCOPY Hx of colonic polyps 05/29/2024 11:30 AM CDT Health Maintenance Due Date Last Done Comments Hepatitis C Screening 1955 Osteoporosis Screening-Bone Density Scan 1955 Hepatitis B Screening 09/09/1975 Pneumococcal vaccine 65+ (1 of 1 - PCV) 09/09/2007 Fall Risk Assessment 03/17/2018 03/17/2017 Depression Screening 04/18/2019 04/18/2018, 03/17/19 18 Zoster Vaccine (2 of 2) 03/04/2020 01/08/2020 DTaP/Tdap/Td Vaccine (2 - Td or Tdap) 11/03/2020 11/03/2010 Well Visit 65+ 2022 04/18/2018, 07/25/2017 Influenza Vaccine (#1) 2023 0, 12/15/2018, 12/06/2017, Additional history exists Breast Cancer Screening-Mammogram 10/11/2024 10/12/2023, 10/12/2023, 08/24/2022, Additional history exists Colon Cancer Screening-Colonoscopy 07/06/2027 07/05/2017 Colon Cancer Screening-CT Colonography Discontinued 07/05/2017 Colon Cancer Screening-DNA Stool Discontinued 07/06/19 18 Colon Cancer Screening-FIT Discontinued 07/05/2017 Colon Cancer Screening-Sigmoidoscopy Discontinued 07/05/2017 Procedures Procedure Name Priority Date/Time Associated Diagnosis Comments COLONOSCOPY 07/05/2017 7:38 AM CDT HM MAMMOGRAPHY Routine 04/12/2017 9:[address] [employer] from Last 3 Months or Most Recently Relevant to Health Maintenance Results * COLONOSCOPY (07/05/2017 7:38 AM CDT) Anatomical Region Laterality Modality Other Narrative Procedure Note Maddy Claire MD - 07/05/2017 7:38 AM CDT [facility] Patient Name: Billie Sanabria Procedure Date: 07/05/2017 7:38 AM Date of : 1955 Admit Type: Outpatient Age: 61 Gender: Female Attending MD: Maddy Claire M.D. Room: [facility] ENDOSCOPY CAPSULE Note Status: Finalized Patient Profile: 61 WF presented for screening., also c/oconstipation, sometimes vomiting, and weight loss. Procedure: Colonoscopy Indications: Screening for colorectal malignant neoplasm, Last colonoscopy: July 2009 Referring MD: Alayna Byers, WALE Providers: Maddy Claire M.D. Impression: - The terminal ileum is normal. - One 3 mm polyp in the descending colon. Resectedand retrieved. - Internal hemorrhoids. Recommendation: - Await pathology results. - Repeat colonoscopy in 5 years for surveillance. - Return to my office as previously scheduled. - Continue present medications. Medicines: Monitored Anesthesia Care Complications: No immediate complications. Estimated Blood Loss: Estimated blood loss: none. Procedure: Pre-Anesthesia Assessment: - Prior to the procedure, a History and Physical was performed, and patient medications and allergieswere reviewed. The patient's tolerance of previous anesthesia was also reviewed. The risks and benefitsof the procedure and the sedation options and riskswere discussed with the patient. All questions were answered, and informed consent was obtained. Prior Anticoagulants: The patient has taken no previous anticoagulant or antiplatelet agents. ASA Grade Assessment: II - A patient with mild systemicdisease. After reviewing the risks and benefits, the patientwas deemed in satisfactory condition to undergo the procedure. The benefits, risks and alternatives of theprocedure and sedation were discussed and informed consent was obtained. All questions were answered. Please referto the signed informed consent document in the medical record. The scope was passed under direct vision.The Pediatric Colonoscope PCF-H190L [id number] was introduced through the anus and advanced to the the cecum, identified by appendiceal orifice andileocecal valve. The colonoscopy was performed without difficulty. The patient tolerated the procedurewell. The quality of the bowel preparation was good. Findings: The perianal and digital rectal examinations were normal. The ileum appeared normal. Mucosal pattern was normal. The colon (entire examined portion) appeared normal. No inflammatory changes and no diverticular chnages noted. No mass lesions noted. A 3 mm polyp was found in the descending colon. The polyp wassessile. The polyp was removed with a jumbo cold forceps. Resection andretrieval were complete. Internal hemorrhoids were found during retroflexion. The hemorrhoids were medium-sized. Electronically signed by Maddy Claire M.D. Maddy Claire M.D. 07/05/2017 8:53:22 AM Number of Addenda: 0 Note Initiated On: 07/05/2017 7:38 AM Procedure Code(s): --- Professional --- 91095, Colonoscopy, flexible; with biopsy, single or multiple Diagnosis Code(s): --- Professional --- Z12.11, Encounter for screening for malignant neoplasm of colon K64.8, Other hemorrhoids D12.4, Benign neoplasm of descending colon CPT copyright 2014 [employer]. All rights reserved. The codes documented in this report are preliminary and upon security operations specialist reviewmay be revised to meet current compliance requirements. Recognized by the [employer] for promoting quality in endoscopy Maddy Claire MD ENDOSCOPY PROCEDURES Final Result * MAMMOGRAPHY (04/12/2017 9:[address] [employer]) Mammogram Normal Historical Provider HEALTH MAINTENANCE Final Result from Last 3 Months or Most Recently Relevant to Health Maintenance Insurance [facility] CHOICE PLUS [facility] HMO/PPO Address: [place] [address] [facility] CHOICE [facility] HMO/PPO Address: [place] [address] [facility] CHOICE [facility] HMO/PPO Address: [address] [address] [place] [id number] [place] [address] [facility] CHOICE [facility]US [facility] HMO/PPO Address: [address] [address] [place] [address] Advance Directives For more information, please contact: [phone] * Full Code (Latest Code Status on File) Date Activated Date Inactivated Comments 05/06/2022 12:35 PM 05/06/2022 7:41 PM * Full Code Date Activated Date Inactivated Comments 05/06/2022 12:35 PM 05/06/2022 12:35 PM * Full Code Date Activated Date Inactivated Comments 07/05/2017 7:14 AM 07/05/2017 11:34 AM Care Teams Rotary Cutter Feeder Relationship Specialty Start Date End Date Franky Ramirez MD [address] [facility] MEDICINE [place], [place] [id number] PCP - General Internal Medicine 05/08/20
--- OUTSIDE RECORDS SUMMARY | 2024-04-27 11:09 | XMS_ITS | Clinical Summary ---
Author Organization [facility] Address [address] [place] [address] Phone Care Team Providers Care Freelance Translator Name Role Phone Franky Ramirez MD Primary Care Provider [phone] Family History Medical History Relation Name Comments Breast Cancer Mother Relation Name Status Comments Mother Social History Tobacco Use Types Packs/Day Years Used Date Smoking Tobacco: Never Assessed Comments No Sex and Gender Information Value Date Recorded Sex Assigned at Not on file Legal Sex Female 8:55 PM CDT Gender Identity Not on file Sexual Orientation Not on file Plan of Treatment Health Maintenance Due Date Last Done Comments DEXA Bone Density 1955 Hepatitis C Virus (HCV) Screening 1955 Colonoscopy 2002 Colorectal Cancer Screening 2002 Cologuard 09/09/2007 Immunochemical Fecal Occult Blood 09/09/2007 Influenza Immunization (#1) 11/06/202312/06, 12/01/2021, 12/29/2020, Additional history exists SARS-COV-2 Immunization ( season) 2023 01/18/2022, 01/08/2021, 04/10/2020, Additional history exists Mammogram 10/11/2024 10/12/2023, 08/06, 07/08/2021, Additional history exists Respiratory Syncytial Virus (RSV) Immunization (Adult) (1 - 1-dose 75+ series) 2032 DTaP/Tdap/Td Immunization Discontinued 11/03/2010 TdaP Immunization Completed 11/03/2010 Zoster Immunization Completed 07/21/2020, 0 Pneumococcal Immunization (50+ years) Completed 01/18/2023, 01/02/2023 Pneumococcal Immunization Combined Discontinued 01/18/2023, 01/02/2023 Hepatitis B Immunization Aged Out No longer eligible based on patient's age to complete this topic Meningococcal Immunization (ACWY) Aged Out No longer eligible based on patient's age to complete this topic Rotavirus Immunization Aged Out No lo nger eligible based on patient's age to complete this topic Procedures Procedure Name Priority Date/Time Associated Diagnosis Comments NATA SCREENING BILATERAL DIGITAL W CAD W MARIPOSA Routine 10/12/2023 10:41 AM CDT Visit for screening mammogram from Last 3 Months or Most Recently Relevant to Health Maintenance Results * NATA SCREENING BILATERAL DIGITAL W CAD W MARIPOSA (10/12/2023 10:41 AM CDT) Anatomical Region Laterality Modality breast Bilateral Mammography 10/12/2023 10:2 4 AM CDT Narrative 10/12/2023 12:23 PM CDT - NATA SCREENING BILATERAL DIGITAL W CAD W MARIPOSA BILATERAL DIGITAL SCREENING MAMMOGRAM 3D/2D WITH CAD WITH MEDIOLATERAL OBLIQUE CRANIOCAUDAL: 10/12/2023 The study was acquired using digital technology and interpreted from soft copy. Current study was also evaluated with ICAD version 7.2. 2D digital mammographic views, as well as 3D digital tomosynthesis were performed in the CC and MLO projections. CLINICAL: Routine screening. Patient has no complaints. No personal history of cancer. Mother with postmenopausal breast cancer. COMPARISONS: Comparison is made to exams dated: 08/24/2022, 07/08/2021, 07/01/2020, 05/03/2019, and 04/28/2018 [facility]. BREAST TISSUE:There are scattered fibroglandular densities in both breasts. FINDINGS: There are benign calcifications in the right breast. No significant masses, calcifications, or other findings are seen in either breast. There has been no significant interval change. IMPRESSION: BI-RAD 2 BENIGN There is no mammographic evidence of malignancy. A 1 year screening mammogram is recommended. A letter will be sent to the patient with these results. The patient will be entered into a reminder system with a target due date of 1 year for her next screening exam. Electronically signed by: Libby hensley/penrad:10/12/2023 11:31:12 Tiler'S Assistant(s): RT Aguilar(R)(M), [facility] letter sent: Normal Exam Reading location: [facility] BI-RADS: 2 Benign Procedure Note Libby Meade MD - 10/12/2023 - NATA SCREENING BILATERAL DIGITAL W CAD W MARIPOSA BILATERAL DIGITAL SCREENING MAMMOGRAM 3D/2D WITH CAD WITH MEDIOLATERAL OBLIQUE CRANIOCAUDAL: 10/12/2023 The study was acquired using digital technology and interpreted from soft copy. Current study was also [facility] with [facility]. 2D digital mammographic views, as well as 3D digital tomosynthesis were performed in the CC and MLO projections. CLINICAL: Routine screening. Patient has no complaints. No personal history of cancer. Mother with postmenopausal breast cancer. COMPARISONS: Comparison is made to exams dated: 08/24/2022, 07/08/2021, 07/01/2020, 05/03/2019, and 04/28/[address] [facility]. BREAST TISSUE:There are scattered fibroglandular densities in both breasts. FINDINGS: There are benign calcifications in the right breast. No significant masses, calcifications, or other findings are seen in either breast. There has been no significant interval change. IMPRESSION: BI-RAD 2 BENIGN There is no mammographic evidence of malignancy. A 1 year screening mammogram is recommended. A letter will be sent to the patient with these results. The patient will be entered into a reminder system with a target due date of 1 year for her next screening exam. Electronically signed by: Libby hensley/penrad:10/12/2023 11:31:12 Tiler'S Assistant(s): RT Aguilar(Bandar)(M), [facility] letter sent: Normal Exam Reading location: [facility] BI-RADS: 2 Benign Franky Ramirez MD IMG MAMMO ORDERABLES Final Res ult from Last 3 Months or Most Recently Relevant to Health [place] [address] [facility] [place] [id number] Care Teams Freelance Translator Relationship Specialty Start Date End Date Franky Ramirez MD [address] [place] [address] PCP - General Internal Medicine 11/09/19
--- OUTSIDE RECORDS SUMMARY | 2024-04-27 11:09 | XMS_ITS | Patient Health Summary ---
Author Organization [facility] Address [address] [facility] [place] [address] Care Team Providers Care Log Check Scaler Name Role Phone Unavailable Primary Care Provider Unavailabl e Note from [facility],non-owned Affiliates and Associated Physician Practices is amultiple site organization consisting of ambulatory clinics and hospital sitesin [place], [place], [place] and [place]. This disclosure is being madepursuant to the Care Everywhere program and may not contain all information available regarding this patient. Last updated 17.[facility] [employer] Allergies No known active allergies Immunizations * INFLUENZA VACCINE, QUADR. (FLUZONE; FLULAVAL; FLUARIX; AFLURIA QUADRIVALENT; 6MO+), 0.5 ML (IIV4)(Given 12/15/2018) Social History Tobacco Use Types Packs/Day Years Used Date Smoking Tobacco: Never Assessed Sex and Gender Information Value Date Recorded Sex Assigned at Not on file Gender Identity Not on file Sexual Orientation Not on file
--- OUTSIDE RECORDS SUMMARY | 2024-04-27 11:09 | XMS_ITS | Referral Summary ---
Author Organization [facility] Medical Office Building B Address [address] [place] [address] Care Team Providers Care Bi Lead Name Role Phone Franky Ramirez MD Primary Care Provider [phone] Encounters Date Type Department Care Team Description 03/21/2024 Telephone [facility] Gastroenterology at [address] [place] [address] Lore Zuniga MA from Last 3 Months Allergies Active Allergy Reactions Criticality Noted Date [...] (04/28/2022): Added automatically from request for surgery [id number] Delayed gastric transit 04/28/2022 Overview (04/28/2022): Added automatically from request for surgery [id number] Irritable bowel syndrome with constipation 11/12 Dyspepsia 11/12/2021 Vertigo 05/23/2020 Assessment & Plan (05/27/2020 3:55 PM CDT): Billie has been experiencing vertigo symptoms since [facility] Dol[facility] 13th, denies any relief in her symptoms since [...] frontal pressure as well. She has tried bhdn-flo-ushiljc medication with little relief. She is currently [...] circulation. 3. Headache diary 4. Cessation of rzkc-cwo-mqqqsxo medication use 5. Caffeine cessation 6. 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 Not on file Last Filed Vital Signs Vital Sign Reading Time Taken Comments Blood Pressure 165/82 10/26/2023 10:21 AM CDT Pulse 122 10/26/2023 10:21 AM CDT Temperature 36.8 C (98.2 F) 05/06/2022 3:20 PM CUSTOMER LOYALTY REPRESENTATIVE Respiratory Rate 16 10/26/2023 10:2 1 AM CDT Oxygen Saturation 99% 05/06/2022 3:20 PM CUSTOMER LOYALTY REPRESENTATIVE Inhaled Oxygen Concentration - - Weight 53.4 kg (117 lb 12.8 oz) 024 10:21 AM CDT Height 160 cm (5' 3 ) 10/26/2023 10:21 AM CDT Body Mass Index 20.87 10/26/2023 10:21 AM CDT Plan of Treatment Upcoming Encounters Date Type Department Care Team (Late st Contact Info) Description 05/29/2024 11:30 AM CDT Hospital Encounter [address] [address] Maddy Claire MD [address] [facility] [address] [place] [address] [place] [address] 05/29/2024 11:30 AM CDT - 05/29/2024 12:00 PM CDT Surgery [address] [address] Maddy Claire MD [address] [facility] [address] [place] [address] [place] [address] COLONOSCOPY Scheduled Procedures Name Priority Associated Diagnoses Date/Ti me COLONOSCOPY Hx of colonic polyps 05/29/2024 11:30 AM CDT Procedures Procedure Name Priority Date/Time Associated Diagnosis Comments COLONOSCOPY 07/05/2017 7:38 AM CDT MAMMOGRAPHY Routine 04/12/2017 9:09 AM CUSTOMER LOYALTY REPRESENTATIVE from Last 3 Months or Most Recently Relevant to Health Maintenance Results * COLONOSCOPY (07/05/2017 7:38 AM CDT) Anatomical Region Laterality Modality Other Narrative Procedure Note Maddy Claire MD - 07/05/2017 7:38 AM CDT [facility] Patient Name: Billie Sanabria Procedure Date: 07/05/2017 7:38 AM Date of : 1955 Admit Type: Outpatient Age: 61 Gender: Female Attending MD: Maddy Claire M.D. Room: [facility] ENDOSCOPY CAPSULE Note Status: Finalized Patient Profile: 61 WF presented for screening., also c/oconstipation, sometimes vomiting, and weight loss. Procedure: Colonoscopy Indications: Screening for colorectal malignant neoplasm, Last colonoscopy: July 2009 Referring MD: Alayna Byers, ANP Providers: Maddy Claire M.D. Impression: - The [...] passed under direct vision.The Pediatric Colonoscope [id number]-[id number] was introduced through the anus and advanced [...] 7:38 AM Procedure Code(s): --- Professional --- 16179, Colonoscopy, flexible; with biopsy, single or multiple Diagnosis Code(s): --- Professional --- Z12.11, Encounter for screening for malignant neoplasm of colon K64.8, Other hemorrhoids D12.4, Benign neoplasm of descending colon CPT copyright 2014 [employer]. All rights reserved. The codes documented in this report are preliminary and upon wastewater operator reviewmay be revised to meet current compliance requirements. Recognized by the [place] [employer] for promoting quality in endoscopy us Maddy Claire MD ENDOSCOPY PROCEDURES Final Result * HM MAMMOGRAPHY (04/12/2017 9:09 AM CUSTOMER LOYALTY REPRESENTATIVE) Pathologist [facility] Mammogram Normal us Historical Provider MD HEALTH MAINTENANCE Final Result from Last 3 Months or Most Recently Relevant to Health Maintenance Insurance [facility]PP[facility] Address: [place] [address] [facility] Address: [place] [address] [facility]PPO Address: [address] [place], [place] [id number] [place] [address] [facility] [employer] [facility] [employer]/PPO Address: [address] [place] [address] Advance Directives For more information, please contact: [phone] * Full Code (Latest Code Status on File) Date Activated Date Inactivated Comments 05/06/2022 12:35 PM 05/06/2022 7:41 PM * Full Code Date Activated Date Inactivated Comments 05/06/2022 12:35 PM 05/06/2022 12:35 PM * Full Code Date Activated Date Inactivated Comments 07/05/2017 7:14 AM 07/05/2017 11:34 AM Care Teams Bi Lead Relationship Specialty Start Date End Date Franky Ramirez MD [address] [facility] [address] [place] [address] PCP - General Internal Medicine 05/08/20
--- OUTSIDE RECORDS SUMMARY | 2024-04-27 11:09 | XMS_ITS | Referral Summary ---
Author Organization [facility] Address [address] [place] [address] Care Team Providers Care Dumpling Machine Operator Name Role Phone Unavailable Primary Care Provider Unavailabl e Source Comments [facility],non-owned Affiliates and Associated Physician Practices is amultiple site organization consisting of ambulatory clinics and hospital sitesin [place], [place], [place] and [place]. This disclosure is being madepursuant to the Care Everywhere program and may not contain all information available regarding this patient. Last updated 17.[facility] [employer] Allergies No known active allergies Immunizations Name Administration Dates Next Due INFLUENZA VACCINE, QUADR. (F LUZONE; FLULAVAL; FLUARIX; AFLURIA QUADRIVALENT; 6MO+), 0.5 ML (IIV4) 12/15/2018 Social History Tobacco Use Types Packs/Day Years Used Date Smoking Tobacco: Never Assessed Sex and Gender Information Value Date Recorded Sex Assigned at Not on file Gender Identity Not on file Sexual Orientation Not on file Plan of Treatment Not on file
--- OUTSIDE RECORDS SUMMARY | 2024-04-27 11:09 | XMS_ITS | Clinical Summary ---
Author Organization [facility] Address [address] [place] [address] Care Team Providers Care Electronic Tech Name Role Phone Unavailable Primary Care Provider Unavailabl e Source Comments [facility] [employer],non-owned Affiliates and Associated Physician Practices is amultiple site organization consisting of ambulatory clinics and hospital sitesin [place], [place], [place] and [place]. This disclosure is being madepursuant to the Care Everywhere program and may not contain all information available regarding this patient. Last updated 17.[facility] [employer] Allergies No known active allergies Immunizations Name [...] Health Maintenance Due Date Last Done Comments BONE DENSITY TESTING 1955 COLOGUARD (AGES 45-75) - COLON CA SCREENING 1955 COLON MONITORING 1955 COLONOSCOPY - COLON CA SCREENING 1955 CT COLONOGRAPHY - COLON CA SCREENING 1955 Colorectal Cancer Screening 1955 FIT - COLON CA SCREENING 1955 FLEX SIG - COLON CA SCREENING 1955 LIPID TESTING 1955 HEPATITIS C SCREENING 09/04/1975 DTAP/TDAP/TD VACCINES (1 - Tdap) 1976 PNEUMOCOCCAL VACCINE 50+ (1 of 1 - PCV) 09/09/2007 ZOSTER VACCINE (1 of 2) 09/09/2007 MAMMOGRAM 04/28/2020 04/28/2018 COVID-19 VACCINE (2023- season) 2023 INFLUENZA VACCINE (#1) 2023 9, 12/05/2017, 12/05/2016, Additional history exists DEPRESSION SCREENING 03/07/2024 Respiratory Syncytial Virus (RSV) Vaccine Pt: or over 60 yrs (1 - 1-dose 75+ series) 2032 HEPATITIS B VACCINE Aged Out No longe r eligible based on patient's age to complete this topic HIB VACCINE Aged Out No longer eligi ble based on patient's age to complete this topic HPV VACCINE Aged Out No longer eligi ble based on patient's age to complete this topic MENINGOCOCCAL (Group B) VACCINE Aged Out No longer eligible based on patient's age to complete this topic MENINGOCOCCAL VACCINE Aged Out No tadeo amber eligible based on patient's age to complete this topic
--- OUTSIDE RECORDS SUMMARY | 2024-04-27 11:09 | XMS_ITS | Encounter Summary ---
Author Organization [facility] Address [address] [place] [address] Phone Care Team Providers Care Trust Mail Clerk Name Role Phone Alayna Byers NP Primary Care Provider [phone] Franky Ramirez MD Primary Care Provider [phone] Encounter Details Date Type Department Care Team (Late st Contact Info) Description 07/25/2017 Orders Only [facility] ProviderOmega MD [address] [place] [address] Social History Tobacco Use Types Packs/Day Years Used Date Smoking Tobacco: Never Smokeless Tobacco: Never Alcohol Use Standard Drinks/Week Comments No 0 (1 standard drink = 0.6 oz pur e alcohol) Comments No Sex and Gender Information Value Date Recorded Sex Assigned at Not on file 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 Gender Identity Female 05/22/2020 8:53 AM CDT Sexual Orientation Bisexual 05/22/2020 8: 53 AM CDT 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 Not on file documented as of this encounter Plan of Treatment Upcoming Encounters Date Type Department Care Team (Late st Contact Info) Description 05/29/2024 11:30 AM CDT Hospital Encounter [facility] [address] [place] [address] Maddy Claire MD [address] [place] [address] [place] [address] 05/29/2024 11:30 AM CDT - 05/29/2024 12:00 PM CDT Surgery [facility] [address] [place] [address] Maddy Claire MD [address] [place] [address] [address] [place] [address] COLONOSCOPY Scheduled Procedures Name Priority Associated Diagnoses Date/Ti me COLONOSCOPY Hx of colonic polyps 05/29/2024 11:30 AM CDT documented as of this encounter Procedures Procedure Name Priority Date/Time Associated Diagnosis Comments CYTOLOGY 07/25/2017 12:00 AM CDT documented in this encounter Results * CYTOLOGY (07/25/2017 12:00 AM CDT) Narrative 07/25/2017 12:00 AM CDT Ordered by an unspecified provider. us Historical Provider LAB CYTOLOGY ORDERABLES F inal Result documented in this encounter Visit Diagnoses Not on filedocumented in this encounter Care Teams Trust Mail Clerk Relationship Specialty Start Date End Date Alayna Byers NP [address] [place] [address] PCP - General Family Medicine 03/24/17 05/07/20 Franky Ramirez MD [address] [place] [address] PCP - General Internal Medicine 05/08/20 documented as of this encounter
== END 2024-04-27 10:32 | disposition home or self-care (01) ==
LOC: ANHIMG 10:33
PROVIDERS: PCP Internal Medicine; Visit Provider Internal Medicine
DX: Z00.00 Encounter for general adult medical examination without abnormal findings (principal); M81.0 Age-related osteoporosis without current pathological fracture; M85.89 Other specified disorders of bone density and structure, multiple sites
CPT/HCPCS: 77080